=== PATIENT | male | born 1985 | race Asian ===

== ENCOUNTER 2018-06-28 22:10 | Emergency (ER) | payer OTHER ==
[2018-06-28 22:35] VITALS: BP 139/74
[2018-06-29] MEDS ORDERED: IBUPROFEN 800 MG TABLET PO ONE (00:46)
[2018-06-29] MEDS ORDERED: LIDOCAINE 1% INJ-PF (10 MG/ML) 30 ML SDV INJ ONE (00:46)
--- NOTE | 2018-06-29 00:47 | RADIOLOGY REPORT (SQ) ---
EXAM DESCRIPTION: XR FINGERS COMPLETED DATE/TME: 06/29/2018 00:06 CLINICAL HISTORY: 32 years, Male, poss FB COMPARISON: None. NUMBER OF VIEWS: 3 TECHNIQUE: 3 views of the left third digit LIMITATIONS: None. FINDINGS: Negative for fracture or dislocation. Negative for radiopaque foreign body. Mild diffuse soft tissue swelling. IMPRESSION: Negative for radiopaque foreign body copyright 2010 [employer]- All Rights Reserved
[2018-06-29] MEDS ORDERED: DIPH/PERTUSS(ACELL)/TETANUS VAC/PF 0.5 ML SYR (>=10YO) IM ONE (00:54)
--- NOTE | 2018-06-29 00:54 | ER Document Report ---
HPI - HPI Patient complains to provider of: Left finger injury Time Seen by Provider: 06/29/18 00:05 Pain Level: 2 Context: Patient is a 32-year-old male presents to the emergency department complaining of the left middle finger injury. Patient states around 1630 hrs. this afternoon he was in the yard cleaning when he hit his left posterior distal middle finger on a thorn on a branch. Patient believes that the thorn is still stuck in his finger he is unable to get it out. Patient's noticed that the finger has swollen over the last couple of hours which is why he presents to the emergency room. Patient is unsure of his last tetanus immune is a Past medical history: None Medications: None Allergies: None Past Medical History - General Information source: Patient - Social History Smoking Status: Unknown if Ever Smoked Family History: Reviewed & Not Pertinent Vertical Provider Document - CONSTITUTIONAL Agree With Documented VS: Yes Notes: GENERAL: Alert, interacts well. No acute distress. HEAD: Normocephalic, atraumatic. EYES: Pupils equal, round, and reactive to light. Extraocular movements intact. ENT: Oral mucosa moist, tongue midline. NECK: Full range of motion. Supple. Trachea midline. LUNGS: Clear to auscultation bilaterally, no wheezes, rales, or rhonchi. No respiratory distress. HEART: Regular rate and rhythm. No murmur ABDOMEN: Soft, non-tender. Non-distended. Bowel sounds present in all 4 quadrants. EXTREMITIES: Moves all 4 extremities spontaneously. normal radial and dorsalis pedis pulses bilaterally. No cyanosis. Swelling and erythema noted to the dorsal aspect of the distal left middle finger between the DIP and the PIP. Appears to be a small puncture wound in that same area. BACK: no cervical, thoracic, lumbar midline tenderness. No saddle anesthesia, normal distal neurovascular exam. NEUROLOGICAL: Alert and oriented x3. Normal speech. cranial nerves II through XII grossly intact PSYCH: Normal affect, normal mood. SKIN: Warm, dry, normal turgor. No rashes or lesions noted. Course - Re-evaluation Re-evalutation: 06/29/18 01:32 Digital block was performed on patient's left middle finger. Wound was fully irrigated and explored, foreign body was believed to be removed because there is no longer an elevation in the skin. Discussed with patient need for antibiotics due to the erythema and swelling noted at the site of the potential foreign body. Discussed following up with primary care provider and return precautions. Patient voices understanding This medical record was dictated with voice recognizing software. There may be grammatical, syntax errors that are unintended. - Vital Signs Vital signs: Temp Pulse Resp BP Pulse Ox 98.4 F 78 18 139/74 H 95 06/28/18 22:34 06/28/18 22:34 06/28/18 22:34 06/28/18 22:34 06/28/18 22:34 Discharge - Discharge Clinical Impression: Foreign body (FB) in soft tissue Condition: Stable Disposition: HOME, SELF-CARE Instructions: Foreign Body ([facility]) Additional Instructions: As we discussed you have been seen and treated in the emergency department for a foreign body in your finger. At this point time I have created an opening that if the foreign body is still there it should work its way to the surface of your skin and expel itself. Please take antibiotics as prescribed to them prevent infection. Please follow-up with your primary care provider in the next 24-48 hours. Please return to the emergency room for any other concerning symptoms. Should the site get red, increasing swelling or have any purulent discharge please return to the emergency room immediately. Prescriptions: Cephalexin Monohydrate [Keflex 500 mg Capsule] 500 mg PO BID 7 Days #14 capsule
[2018-06-29] MEDS ORDERED: CEPHALEXIN 500 MG CAPSULE PO ONE (01:35)
== END 2018-06-29 02:02 | disposition home or self-care (01) ==
LOC: ER 22:10
DX: S60.453A Superficial foreign body of left middle finger, initial encounter (principal); W45.8XXA Other foreign body or object entering through skin, initial encounter; Y93.89 Activity, other specified
CPT/HCPCS: 99283; 90471; 73140; 64450; J3490; 90715